=== PATIENT | male | born 1945 | race Caucasian/White ===

== ENCOUNTER → 2017-08-22 | Outpatient (CLI) | payer OTHER, MEDICARE | END | disposition home or self-care (01) | LOC: C.RDSM 12:48 | PROVIDERS: ATTEND Physical Medicine & Rehabilitation Sports Medicine | DX: M25.511 Pain in right shoulder (principal); M25.531 Pain in right wrist ==

== ENCOUNTER → 2017-08-31 | Outpatient (CLI) | payer OTHER, MEDICARE ==
--- NOTE | 2017-08-31 11:41 | DIAGNOSTIC IMAGING REPORT ---
FLUOROSCOPICALLY GUIDED RIGHT SHOULDER ARTHROGRAM PRE-MRI CLINICAL HISTORY: RIGHT SHOULDER PAIN COMPARISON STUDY: Conventional radiographic study dated 08/22/2017 FINDINGS: A timeout was performed. The risks the procedure were explained the patient and informed consent was obtained. The patient was prepped and draped in sterile fashion. The skin was anesthetized 1% lidocaine. A 22-gauge spinal needle was introduced into the joint capsule. A mixture of Optiray 300 and gadolinium was instilled into the joint space. A fluoroscopic spot image documents intra-articular location of the contrast. The patient was sent to the MRI suite for further evaluation. IMPRESSION: Successful right shoulder intra-articular gadolinium injection pre-MRI. Electronically signed by: Du Au M.D. 08/31/2017 11:40 AM Dictated Date/Time: 08/31/2017 11:37 AM
--- NOTE | 2017-08-31 11:48 | DIAGNOSTIC IMAGING REPORT ---
R UPPER EXT JOINT WITH CLINICAL HISTORY: 72 years-old Male presenting with SHOULDER PAIN, no specific trauma, limited range of motion. TECHNIQUE: Multisequence, multiplanar MR imaging of the right shoulder was performed after the administration of intra-articular contrast. IV contrast: None. COMPARISON: Plain radiographs from 08/22/2017. FINDINGS: Localizer images: Unremarkable. Bone marrow: Normal bone marrow signal intensity. No bony edema. Articular cartilage: Slight superior subluxation of the humeral head resulting in effacement of the acromiohumeral interval, which measures 5 mm. Mild thinning of the articular cartilage of the inferior humeral head and mid glenoid (less than 50% thickness). Labrum: Chondral labral separation along the inferior glenoid (series 6 image 10). Blunting of the anterior inferior labrum may relate to chronic degenerative change. No focal labral tear. Biceps and triceps tendons: There is slight medial subluxation of the long head of the biceps tendon (series 4 image 10) with a longitudinal tear evident in the tendon. Short head of the biceps tendon intact. Long head of the triceps tendon intact. Rotator cuff: Bursal surface tear of the anterior insertional fibers of the supraspinatus tendon (series 9 image 9), which is near full-thickness. There may also be a partial undersurface tear of the myotendinous junction anteriorly (series 7 image 11; series 9 image 11). Increased signal intensity of the critical zone and insertional fibers of the infraspinatus suggesting tendinosis. There may also be a minimal partial undersurface tear near the insertional fibers (series 9 image 6). Teres minor tendon intact. Partial undersurface tear of the proximal portion of the subscapularis tendon. The transverse ligament portion of the subscapularis is intact. Acromioclavicular joint: Hypertrophic degenerative changes of the acromioclavicular joint, which contains small amount of fluid. Shoulder joint effusion: Expected intra-articular contrast. Joint capsule appears intact. Trace fluid in the subacromial subdeltoid bursa. Muscle: Mild fatty atrophy of the infraspinatus muscle. The remainder of the muscles are normal in muscle bulk and signal intensity. Superficial soft tissue: No subcutaneous edema. IMPRESSION: 1. Partial bursal surface tear of the insertional fibers of the supraspinatus tendon. 2. Possible partial tear of the myotendinous junction of the supraspinatus. 3. Tendinosis of the infraspinatus with possible partial undersurface tear near the insertional fibers. Mild fatty atrophy of the infraspinatus muscle. 4. Partial undersurface tear of the proximal portion of the subscapularis tendon with resultant subluxation of the long head of the biceps tendon. 5. Findings concerning for longitudinal tear of the long head of the biceps tendon. 6. Superior subluxation of the humeral head suggests chronic rotator cuff impingement. 7. Degenerative changes of the AC joint. 8. Suggestion of chondral labral separation of the inferior glenoid labrum. No focal labral tear. Electronically signed by: Ankit Garner M.D. 08/31/2017 11:47 AM Dictated Date/Time: 08/31/2017 11:29 AM
== END | disposition home or self-care (01) ==
LOC: C.MRIBC 09:38
PROVIDERS: ATTEND Physical Medicine & Rehabilitation Sports Medicine
DX: M25.531 Pain in right wrist (principal); M19.031 Primary osteoarthritis, right wrist; G56.01 Carpal tunnel syndrome, right upper limb; M75.41 Impingement syndrome of right shoulder

== ENCOUNTER → 2017-11-15 | Day surgery (SDC) | payer OTHER, MEDICARE ==
[2017-10-17 13:40] VITALS: Ht 177.8 cm; Wt 70.9 kg
[~2017-11-15] VITALS: Ht 177.8 cm; Wt 70.9 kg
[~2017-11-15] MED LIST: ASPI-428 PO; ATROPINE SULFATE 0.1 MG/ML 5ML SYR IV PRN; BUPIVACAINE 0.5 % 5 MG/1 ML PF 10ML VIAL ONE; CALC500C70 PO; CEFAZOLIN 2000MG IV PUSH 15 ML IV SCH; CHOL1000 PO; EpHEDrine SULFATE INJ 50 MG/ML AMP IV PRN; FENTANYL CITRATE INJ 50 MCG/1 ML 2 ML VIAL IV PRN; FENTANYL CITRATE INJ 50 MCG/1 ML 2 ML VIAL ONE; FOLI1TAB8 PO; HYDROCORTISONE SOD SUCCINATE 100 MG/2 ML VIAL IV SCH; LACTATED RINGER'S 1000ML 1,000 ML IV SCH; LIDOCAINE HCL 2% 2 ML VIAL (20MG/ML) ONE; LIDOCAINE HCL 2% LOCAL 20 ML VIAL ONE; MAGN400T6 PO; METH2.5T PO; MIDAZOLAM HCL 1 MG/ML 2ML VIAL ONE; MULT-506 PO; ONDANSETRON INJ 2 MG/ML 2 ML VIAL IV PRN; PRED-301 PO; PROPOFOL IV EMULSION 10 MG/ML 20 ML VIAL ONE; SODIUM CHLORIDE 0.9% 1000ML 1,000 ML IV SCH
--- NOTE | 2017-11-15 09:11 | History & Physical Bridge Note ---
H&P Re-Evaluation Bridge Note: I have examined the patient, reviewed the History & Physical and in the interval since the performance of the History & Physical I have noted the following changes of clinical significance: consent obtained.No changes noted
--- NOTE | 2017-11-15 09:12 | Discharge Instructions ---
Discharge Instructions Date of Service Nov 15, 2017. Visit Reason for Visit: Right Recurrent Carpal Tunnel Syndrome Discharge Discharge Diagnosis / Problem: same Discharge Goals Goal(s): Decrease discomfort, Improve function Medications Stopped Medications Name(s): use all scripts as directed Activity Recommendations Activity Limitations: as noted below Lifting Limitations: until after follow-up appointment Exercise/Sports Limitations: until after follow-up appointment May Resume Sexual Activity: after follow-up appointment Shower/Bathe: keep incision dry Anesthesia . Post Anesthesia Instructions: If you have had General Anesthesia or IV Sedation: * Do not drive today. * Resume driving when surgeon permits. * Do not make important decisions or sign legal documents today. * Call surgeon for: 1. Temperature elevations greater than 101 degrees F. 2. Uncontrollable pain. 3. Excessive bleeding. 4. Persistent nausea and vomiting. 5. Medication intolerance (nausea, vomiting or rash). * For nausea and vomiting use only clear liquids such as: tea, soda, bouillon until nausea subsides, then gradually increase diet as tolerated. * If you have any concerns or questions, call your surgeon's office. If physician is unavailable and it is an emergency, call 911 or go to the nearest emergency room. . Instructions / Follow-Up Instructions / Follow-Up The following are instructions to follow after minor hand surgery. ACTIVITY RECOMMENDATIONS: * Minimize activity until your first visit after surgery. * No excessive walking, jogging, sports or laboring. * Return to activity is individualized. Most patients are able to return to everyday activities within 2 weeks. * Return to sports or intensive labor usually occurs at 1-2 months. * DRIVING: Driving may be resumed when you feel you have adequate pain control and use of the hand. * BATHING: You may shower or sponge-bathe immediately after surgery. The dressing will need to be covered with a plastic bag or plastic wrap until the dressing is changed on the fourth or fifth day after surgery. Once the dressing has been changed on the fourth or fifth day after surgery, you may shower and get the incision wet. * Wash with regular soap and water. * Do not bathe (submerge the incision), soak, swim or use a hot tub until the incision is completely healed over with normal skin and the doctor has given the OK to proceed. * There is no need to apply any ointments, powders or salves to your incision. * Do not apply alcohol or hydrogen peroxide directly to the incision. Diluted peroxide (50:50 mixture with sterile saline) may be used to clean dried blood from around the incision area. WORK/SCHOOL: * You may return to sedentary work or school when you are feeling comfortable. This is usually 3-7 days after surgery. * Expect increased discomfort with increased activity. Continue to elevate and ice the hand as much as possible. DIET: * Resume previous diet. MEDICATIONS: * You will have a prescription for pain medication and an anti-inflammatory medication after surgery. Use the pain pills for severe pain and the anti-inflammatory for less severe pain. * Once the pain pills have run out, try to use the anti-inflammatory. If this is not effective then contact the office for assistance. * The pain medication may cause nausea, constipation and sleepiness. You should see how they affect you before driving or similar activity. * The anti-inflammatory may cause stomach upset and bleeding. If this occurs, let your doctor know immediately . * Some patients may need blood clot prevention. This can be done with either a pill or a simple shot. Your doctor will advise you on when to begin these medications and how to take them. * Do not take aspirin or other anti-inflammatory products (i.e. Advil or Aleve ) if taking blood thinner medication. * Take a stool softener like Colace or a stimulant like Senokot to prevent constipation. SPECIAL CARE INSTRUCTIONS: ICE: * Do not apply ice directly to the skin. * Use a thin dressing or stockinet between the skin and ice bag. The dressing in place after surgery will suffice. * Apply ice for 20-30 minutes and repeat every 2-4 hours. This is especially important for the first 3-7 days after surgery. * Once the pain improves, use ice as needed. ELEVATION: * Keep your hand elevated at or above the level of your heart as much as possible. * Expect some increased discomfort and swelling if you allow your hand to hang down for any length of time. DRESSING: * Your dressing will be changed 4-5 days after surgery by the physical therapist or physician's drafter assistant. Leave your dressing intact until this time. * You may then change your dressing daily with clean dry gauze or Band-aids and a soft wrap or stockinet. * Always wash your hands prior to touching the incision area. * Once the stitches are removed, you may leave the wound open to air or cover with a thin bandage. * There is no need to apply any ointments, powders or salves to your incision. * Expect some bloody drainage for the first few days after surgery. * Leave the tape strips in place (if present) for 5-7 days. * The initial dressing after surgery may become soaked with blood or fluid which is normal. You may reinforce your dressing with clean, dry gauze as needed. BRACE: * Bracing is generally not needed after routine hand surgery. THERAPY: * Physical therapy may be prescribed after your surgery. * For carpal tunnel and trigger digit surgery you may begin moving your fingers and wrist immediately after surgery as tolerated. * Be careful to not overuse. * Once the sutures are removed, further range of motion exercises can be performed. * Hand incisions may be very sensitive for a few months after surgery so avoid excessive pressure on the incision. If necessary, use a padded weightlifters' glove. * You may massage the incision with skin cream to make it less sensitive and reduce scarring. * Hand strength usually returns with normal use. * If needed, squeezing a soft sponge or Play-dough may help. * Your doctor will recommend physical therapy if necessary. PROBLEMS/QUESTIONS: * If you have any problems such as severe pain, numbness, tingling or high fevers or if you have any questions, please contact the office at [phone]. * It is not uncommon to have some numbness and tingling after the surgery especially if you have had a nerve block done. This should gradually improve over the first 1- 2 days. If this persists longer or worsens then contact the office. FOLLOW UP VISIT: * If not already scheduled, please call the office at to schedule follow-up appointments for approximately 10 days, 6 weeks and 3 months after surgery. Diet Recommendations Recommended Home Diet: resume previous diet Procedures Procedures Performed: see op note Pending Studies Studies pending at discharge: no Medical Emergencies . Who to Call and When: Medical Emergencies: If at any time you feel your situation is an emergency, please call 911 immediately. . Non-Emergent Contact Non-Emergency issues call your: Specialist Call Non-Emergent contact if: wound has increased drainage, wound has increased redness, wound has increased pain . . "Provider Documentation" section prepared by Jimmy Aponte. .
--- NOTE | 2017-11-15 10:37 | [facility] Post Operative Brief Note ---
Immediate Operative Summary Operative Date Nov 15, 2017. Pre-Operative Diagnosis Right Recurrent Carpal Tunnel Syndrome Post-Operative Diagnosis same Procedure(s) Performed Right Open Carpal Tunnel Release With Fat Pad Transposition Surgeon Dr. David Aponte Wax Coating Machine Tender Surgeon(s) Gabe Fournier PA-C Estimated Blood Loss Trace Findings Consistent with Post-Op Diagnosis Fluids (cc crystalloids) 400cc Specimens none Drains None Anesthesia Type MAC Complication(s) none Disposition Accompanied Pt To Recover: no Overlapping Procedure I was immediately available: during the entire case
[2017-11-15 10:42] VITALS: TEMP 36.3
[2017-11-15 11:04] VITALS: BP 175/80; PULSE 56; O2SAT 97
--- NOTE | 2017-11-15 11:08 | OPERATIVE REPORT ---
DATE OF OPERATION: 11/15/2017 SURGEON: Jimmy Aponte MD MITIGATION SUPERVISOR: Gabe Fournier PA-C. No resident or fellow available. PREOPERATIVE DIAGNOSIS: Recurrent carpal tunnel syndrome, right hand, severe. POSTOPERATIVE DIAGNOSIS: Same. OPERATION PERFORMED: Revision, decompression, right carpal tunnel, with fat pad ulnar based transposition. PERIOPERATIVE SITUATION: Medically cleared male with intractable numbness and tingling of his hand, has severe wasting, has severe disease. EMG nerve conduction study reveals severe injury to nerve. At this point in time, we will proceed with surgical treatment. Options were discussed with the patient in detail. He understands this may not correct his issue. DESCRIPTION OF PROCEDURE: Patient was identified, site verified, consent verified, antibiotics confirmed as being given. The right upper extremity was prepped and draped in routine fashion. Tourniquet was inflated to 250 mmHg after exsanguination of limb with a rubber Esmarch bandage for a total of approximately 25 minutes. Curvilinear incision was then made based on the fourth ray and extended across the wrist in an oblique fashion ulnarly. Full thickness flaps raised. Scarring was encountered. The carpal canal and the distal antebrachial fascia were opened proximally and the nerve identified. It was very opaque and flat, it was then decompressed from proximal to distal. There was a significant amount of intact transverse carpal ligament in the distal half of the carpal canal. This was released. The nerve was then decompressed further by taking some tenosynovium out. Care taken to protect the nerve. No further neurolysis was performed. The floor of the carpal canal had no masses. A proximally based ulnar fat pad flap was then raised and transposed into the canal sitting over the nerve to try to keep it from getting scarred. Also tried to ensure some increased vascularization. This was then tacked down with a #3 Vicryl to the palmar fascia. This kept it in position. The wound was then closed using horizontal mattress 3-0 nylon suture and then the wound dressed with Dermabond, 4 x 4 gauze, and a volar splint. Estimated blood loss was trace. Crystalloid was roughly 400 mL. Overall prognosis is very guarded. Patient understood this. I attest to the content of the Intraoperative Record and any orders documented therein. Any exception s are noted below.
--- NOTE | 2017-11-15 11:18 | Anesthesia Progress Nt - [facility] ---
Anesthesia Post Op Note Date & Time Nov 15, 2017 at 11:18 Vital Signs Pain Intensity: 0 Vital Signs Past 12 Hours Date Time Temp Pulse Resp B/P (MAP) Pulse Ox O2 Delivery O2 Flow Rate FiO2 11/15/17 11:04 56 18 175/80 (111) 97 Room Air 11/15/17 10:42 36.3 59 16 159/92 (114) 95 Room Air 11/15/17 09:22 36.8 67 16 180/94 (122) 97 Room Air Notes Mental Status: alert / awake / arousable, participated in evaluation Pt Amnestic to Procedure: Yes Nausea / Vomiting: adequately controlled Pain: adequately controlled Airway Patency, RR, SpO2: stable & adequate BP & HR: stable & adequate Hydration State: stable & adequate Anesthetic Complications: no major complications apparent
--- NOTE | 2017-11-15 12:57 | [facility] Operative Report ---
Operative Report Operative Date Nov 15, 2017. Pre-Operative Diagnosis Right Recurrent Carpal Tunnel Syndrome Post-Operative Diagnosis Right wrist same Procedure(s) Performed Right Open Carpal Tunnel Release With Fat Pad Transposition Surgeon Dr. David Aopnte Lehr Operator Surgeon(s) Gabe Fournier PA-C Estimated Blood Loss Trace Findings Right wrist carpal tunnel syndrome Fluids 400cc Specimens none Drains None Anesthesia Type MAC Complication(s) none Disposition no Indications This 72-year-old white male presented to the office with complaints of recurrent right hand numbness and tingling. He previously had a carpal tunnel release done many years ago. Symptoms have recurred. He had tried conservative care measures without improvement. Symptoms are worse with use. He elected to proceed with surgical intervention after being educated about potential risks and outcomes. Preoperative EMG was obtained. Description of Procedure Patient was taken to the operating room where he was given sedation and local anesthetic. He was prepped and draped in usual sterile fashion. Please see Dr. Aponte's operative report for specifics of the procedure. I was present for the entire case from initial patient positioning through final wound closure. Assistance was provided in tissue retraction, hemostasis, and final wound closure. Patient was taken to phase 2 recovery in satisfactory condition. I attest to the content of the Intraoperative Record and any orders documented therein. Any exceptions are noted below.
== END | disposition home or self-care (01) ==
LOC: X.SURG 08:54
PROVIDERS: ATTEND Physical Medicine & Rehabilitation Sports Medicine
DX: G56.01 Carpal tunnel syndrome, right upper limb (principal); Z79.899 Other long term (current) drug therapy; M06.9 Rheumatoid arthritis, unspecified; M19.90 Unspecified osteoarthritis, unspecified site; E78.5 Hyperlipidemia, unspecified; Z80.42 Family history of malignant neoplasm of prostate; Z79.82 Long term (current) use of aspirin; Z88.8 Allergy status to other drugs, medicaments and biological substances; F17.220 Nicotine dependence, chewing tobacco, uncomplicated; Z79.52 Long term (current) use of systemic steroids